=== PATIENT | male | born 1995 | race African-American/Black ===

== ENCOUNTER 2021-07-27 22:10 | Inpatient (IN) | payer SELFPAY ==
[2021-07-27] MEDS ORDERED: Fentanyl 100 MCG/2 ML VIAL ONE ×2 (22:21→23:29)
[2021-07-27 22:25] LABS: #Eosinphils 0.1 10x3/uL (0.0-0.5); #Monocytes 0.3 10x3/uL (0.0-1.1); #Neutrophils 1.5 10x3/uL (1.5-8.4); %Basophils 0.3 % (0.0-2.0); %Eosinophils 2.3 % (0.0-6.0); %Lymphocytes 44.6 % (18.0-47.0); %Monocytes 9.9 % (0.0-10.0); Hemoglobin 12.8 g/dL (13.5-17.5); Mean Corpuscular HGB CONC 34.4 g/dL (32.0-36.0); Mean Corpuscular Hemoglobin 32.9 pg (27.0-33.0); Mean Corpuscular Volume 95.6 fl (81.2-95.1); Mean Platelet Volume 9.2 fl (7.4-10.4); Platelet Count 216 10x3/uL (150-450); RBC Distribution Width 14.2 % (11.5-14.5); Red Blood Cell (RBC) Count 3.89 10x6/uL (4.32-5.72); White Blood Cell (WBC) Count 3.5 10x3/uL (3.5-10.5)
[2021-07-27] MEDS ORDERED: ceFAZolin 2 GM/Dextrose 50 ML IVPB ONE (22:30)
[2021-07-27 22:33] LABS: INR-International Normal Ratio 0.9; PTT 24.5 sec (22.0-33.0); Prothrombin Time 10.1 sec (9.5-12.1)
[2021-07-27 22:38] LABS: ALT (SGPT) 26 U/L (8-55); AST (SGOT) 34 U/L (5-34); Albumin 3.8 g/dL (3.5-5.0); Alkaline Phosphatase 68 U/L (40-110); Anion Gap 20 mmol/L (10-20); BUN (Urea Nitrogen) 10 mg/dL (8.9-20.6); Bilirubin, Total 0.6 mg/dL (0.2-1.2); Calc. Creatinine Clearance 0 mL/min (70-130); Calcium 8.3 mg/dL (7.8-10.44); Carbon Dioxide 16 mmol/L (22-29); Chloride 111 mmol/L (98-107); Globulin 2.5 g/dL (2.4-3.5); Glucose 169 mg/dL (70-105); Potassium 3.1 mmol/L (3.5-5.1); Protein, Total 6.3 g/dL (6.0-8.3); Sodium 144 mmol/L (136-145)
[2021-07-27] MEDS ORDERED: Boostrix 0.5 ML (Tdap) VIAL ONE (23:00)
[2021-07-27] MEDS ORDERED: EPINEPHrine 1 MG/ML AMP ONE (23:19)
[2021-07-27] MEDS ORDERED: Bupivacaine PF 0.5% 30 ML VIAL ONE (23:20)
[2021-07-27] MEDS ORDERED: PROPOFOL 20 ML ONE (23:24)
[2021-07-27] MEDS ORDERED: Midazolam HCl 2 mg/2 ml Vial ONE (23:29)
[2021-07-27 23:49] LABS: SARS-CoV-2 NAA Rapid Test Not Detected (NotDetected)
[2021-07-28] MEDS ORDERED: PHENYLEPHRINE-NS 100 MCG/ML 10 ML SYRINGE ONE ×2 (00:14→00:23)
[2021-07-28] MEDS ORDERED: Succinylcholine 200 MG/10 ml SYRINGE FS ONE (00:14)
[2021-07-28] MEDS ORDERED: Lidocaine 1% PF 5 ML VIAL ONE (00:14)
[2021-07-28] MEDS ORDERED: Ondansetron PF 4 MG/2 ML Vial ONE (00:19)
[2021-07-28] MEDS ORDERED: Dexamethasone 4 mg/ml Vial ONE (00:19)
[2021-07-28] MEDS ORDERED: Phenylephrine 10 MG/ML VIAL ONE (00:39)
[2021-07-28] MEDS ORDERED: Ketorolac Tromethamine 30 MG/ML VIAL ONE (01:58)
[2021-07-28] MEDS ORDERED: Fentanyl 100 MCG/2 ML VIAL ONE ×3 (02:07→02:32)
[2021-07-28 03:55] VITALS: BMI 26.9
[2021-07-28] MEDS ORDERED: Communication Order-Pharmacy FS SCH (03:58)
[2021-07-28] MEDS ORDERED: HYDROcodone/Acetaminophen 5/325 mg Tablet PO PRN ×2 (03:58)
[2021-07-28] MEDS ORDERED: Ondansetron PF 4 MG/2 ML Vial SLOW IVP PRN (03:58)
[2021-07-28] MEDS ORDERED: Morphine 2 MG/ML VIAL SLOW IVP PRN (03:58)
[2021-07-28] MEDS ORDERED: Morphine 4 MG/ML VIAL SLOW IVP PRN (03:58)
[2021-07-28] MEDS ORDERED: traMADol HCl 50 MG TAB PO PRN (03:58)
[2021-07-28] MEDS ORDERED: Ondansetron ODT 4 MG TAB PO PRN ×2 (03:58→08:14)
[2021-07-28] MEDS ORDERED: Acetaminophen 325 MG TAB PO PRN (03:58)
[2021-07-28] MEDS ORDERED: Bisacodyl 10 MG SUPP PR PRN (03:58)
[2021-07-28] MEDS: Sodium Chloride 0.9% 100 ML IV SCH ×10 (04:21→13:58)
[2021-07-28] MEDS ORDERED: ceFAZolin 2 GM/Dextrose 50 ML IVPB ONE (04:57)
[2021-07-28 05:06] LABS: Lactic Acid 2.8 mmol/L (0.5-2.2)
[2021-07-28] MEDS: Ketorolac Tromethamine 30 MG/ML VIAL IVP SCH ×2 (05:10→13:09)
[2021-07-28] MEDS: ceFAZolin 2 GM/Dextrose 50 ML 2 GM in Premix Bag 1 BAG IVPB SCH ×2 (05:10→13:08)
[2021-07-28 08:36] LABS: #Eosinphils 0.2 10x3/uL (0.0-0.5); #Monocytes 0.7 10x3/uL (0.0-1.1); #Neutrophils 9.2 10x3/uL (1.5-8.4); %Basophils 0.2 % (0.0-2.0); %Eosinophils 1.4 % (0.0-6.0); %Lymphocytes 7.3 % (18.0-47.0); %Monocytes 6.2 % (0.0-10.0); %Neutrophils 84.6 % (40.0-75.0); Hemoglobin 11.8 g/dL (13.5-17.5); Mean Corpuscular HGB CONC 34.7 g/dL (32.0-36.0); Mean Corpuscular Hemoglobin 33.4 pg (27.0-33.0); Mean Corpuscular Volume 96.3 fl (81.2-95.1); Mean Platelet Volume 9.5 fl (7.4-10.4); Platelet Count 205 10x3/uL (150-450); RBC Distribution Width 14.2 % (11.5-14.5); Red Blood Cell (RBC) Count 3.53 10x6/uL (4.32-5.72); White Blood Cell (WBC) Count 10.9 10x3/uL (3.5-10.5)
[2021-07-28 08:45] LABS: ALT (SGPT) 26 U/L (8-55); AST (SGOT) 28 U/L (5-34); Albumin 3.8 g/dL (3.5-5.0); Alcohol Less than 10 mg/dL (Less than 10); Alkaline Phosphatase 66 U/L (40-110); Anion Gap 15 mmol/L (10-20); BUN (Urea Nitrogen) 11 mg/dL (8.9-20.6); Bilirubin, Total 0.5 mg/dL (0.2-1.2); Calc. Creatinine Clearance 136 mL/min (70-130); Calcium 8.4 mg/dL (7.8-10.44); Carbon Dioxide 23 mmol/L (22-29); Chloride 106 mmol/L (98-107); Globulin 2.6 g/dL (2.4-3.5); Glucose 122 mg/dL (70-105); Magnesium 1.7 mg/dL (1.6-2.6); Potassium 4.3 mmol/L (3.5-5.1); Protein, Total 6.4 g/dL (6.0-8.3); Sodium 140 mmol/L (136-145)
[2021-07-28] MEDS ORDERED: Multivit, Therapeutic 1 TAB PO SCH (09:00)
[2021-07-28] MEDS ORDERED: Folic Acid 1 MG TAB PO SCH (09:00)
[2021-07-28] MEDS ORDERED: Aspirin 81 mg Enteric Coated Tablet PO SCH (09:00)
[2021-07-28 11:26] LABS: Amphetamine Not Detected (NotDetected); Barbiturates Screen Not Detected (NotDetected); Benzodiazepine Screen Not Detected (NotDetected); Cocaine Metabolite Screen Not Detected (NotDetected); Methadone Not Detected (NotDetected); Methamphetamine Not Detected (NotDetected); Opiate Screen Detected (NotDetected); Oxycodone Screen Not Detected (NotDetected); Phencyclidine (PCP) Not Detected (NotDetected); THC/Cannabinoid Screen Detected (NotDetected); Tricyclic Screen Not Detected (NotDetected)
[2021-07-28 11:35] LABS: Creatinine, Urine 188.25 mg/dL (63-166)
[2021-07-28 12:01] VITALS: BP 135/84; TEMP 97.2
[2021-07-28 12:11] LABS: Hemoglobin A1c 5.2 % (4.0-6.0)
[2021-07-28 13:15] LABS: Actual Bicarbonate (HCO3v) 23 mEq/L (22-28); Base Excess -1.7 mEq/L (-2.0 to +3.0); Calcium, Ionized (venous) 1.05 mmol/L (1.16-1.32); Chloride (VBG) 106 mmol/L (98-106); Hemoglobin (Hb) 12.7 g/dL (13.2-17.3); Potassium (VBG) 4.12 mmol/L (3.70-5.30); Puncture Site Other Site; Sodium 137.2 mmol/L (133-146); pH (venous) 7.38 (7.32-7.43)
[2021-07-31] MEDS ORDERED: Thiamine 100 MG TAB PO SCH (09:00)
== END 2021-07-28 14:10 | disposition home or self-care (01) | DRG 41 ==
LOC: EDBD 22:10 → CSHERS 22:10 → CSHTELE 07-28 03:39
PROVIDERS: ADMIT Student in an Organized Health Care Education/Training Program; ATTEND Family Medicine
PROC: 0LQ50ZZ Repair Right Lower Arm and Wrist Tendon, Open Approach (ICD-10-PCS; principal; 2021-07-28)
PROC: 03LB0ZZ Occlusion of Right Radial Artery, Open Approach (ICD-10-PCS; 2021-07-28)
PROC: 01Q60ZZ Repair Radial Nerve, Open Approach (ICD-10-PCS; 2021-07-28)
DX: S54.21XA Injury of radial nerve at forearm level, right arm, initial encounter (principal); S56.221A Laceration of other flexor muscle, fascia and tendon at forearm level, right arm, initial encounter; N17.9 Acute kidney failure, unspecified; W26.8XXA Contact with other sharp object(s), not elsewhere classified, initial encounter; I95.9 Hypotension, unspecified; R68.81 Early satiety; F17.200 Nicotine dependence, unspecified, uncomplicated; F12.90 Cannabis use, unspecified, uncomplicated; R11.2 Nausea with vomiting, unspecified; R00.0 Tachycardia, unspecified; I10 Essential (primary) hypertension; D64.9 Anemia, unspecified; F20.9 Schizophrenia, unspecified; F10.229 Alcohol dependence with intoxication, unspecified; Z20.822 Contact with and (suspected) exposure to COVID-19; Z71.41 Alcohol abuse counseling and surveillance of alcoholic; Z80.0 Family history of malignant neoplasm of digestive organs
CPT/HCPCS: 36415; 76705; 76770; 80053; 80306; 80307; 82550; 82570; 82805; 83036; 83605; 83735; 83935; 84300; 84443; 84540; 85025; 85610; 85730; 86850; 86900; 86901; 90715; C1776; G0390; J0171; J0690; J1100; J1885; J2250; J2370; J2405; J2704; J3010; J7050; S0020; U0002

== ENCOUNTER 2021-07-29 10:50 | Emergency (ER) | payer SELFPAY ==
[2021-07-29] MEDS ORDERED: HYDROcodone/Acetaminophen 5/325 mg Tablet ONE (11:29)
[2021-07-29 11:46] LABS: #Eosinphils 0.1 10x3/uL (0.0-0.5); #Monocytes 0.8 10x3/uL (0.0-1.1); #Neutrophils 4.8 10x3/uL (1.5-8.4); %Basophils 0.1 % (0.0-2.0); %Eosinophils 0.9 % (0.0-6.0); %Lymphocytes 15.5 % (18.0-47.0); %Monocytes 12.4 % (0.0-10.0); %Neutrophils 70.8 % (40.0-75.0); Hemoglobin 9.6 g/dL (13.5-17.5); Mean Corpuscular HGB CONC 34.4 g/dL (32.0-36.0); Mean Corpuscular Hemoglobin 33.6 pg (27.0-33.0); Mean Corpuscular Volume 97.6 fl (81.2-95.1); Mean Platelet Volume 8.9 fl (7.4-10.4); Platelet Count 164 10x3/uL (150-450); Red Blood Cell (RBC) Count 2.86 10x6/uL (4.32-5.72); White Blood Cell (WBC) Count 6.8 10x3/uL (3.5-10.5)
[2021-07-29 12:08] LABS: Anion Gap 11 mmol/L (10-20); BUN (Urea Nitrogen) 14 mg/dL (8.9-20.6); Calc. Creatinine Clearance 0 mL/min (70-130); Calcium 8.7 mg/dL (7.8-10.44); Carbon Dioxide 28 mmol/L (22-29); Chloride 106 mmol/L (98-107); Glucose 98 mg/dL (70-105); Potassium 4.1 mmol/L (3.5-5.1); Sodium 141 mmol/L (136-145)
== END 2021-07-29 13:01 | disposition home or self-care (01) ==
LOC: CSHERS 10:50
DX: G89.18 Other acute postprocedural pain (principal); M79.631 Pain in right forearm
CPT/HCPCS: 80048; 85025; 99283

== ENCOUNTER 2021-08-17 15:15 | Emergency (ER) | payer SELFPAY | END 2021-08-17 17:00 | disposition home or self-care (01) | LOC: CSHERS 15:15 | DX: S51.811D Laceration without foreign body of right forearm, subsequent encounter (principal) | CPT/HCPCS: 29125 ==